=== PATIENT | female | born 1995 | race Two or more races ===

== ENCOUNTER 2017-10-26 23:27 | Emergency (ER) | payer OTHER | END 2017-10-27 01:52 | disposition home or self-care (01) | LOC: M ED 23:27 | DX: H66.91 Otitis media, unspecified, right ear (principal); R51 Headache; R06.02 Shortness of breath; M79.1 Myalgia | CPT/HCPCS: 87880 ==

== ENCOUNTER 2017-11-22 19:57 | Emergency (ER) | payer OTHER | END 2017-11-22 21:55 | disposition home or self-care (01) | LOC: M ED 19:57 | DX: J02.9 Acute pharyngitis, unspecified (principal); R60.0 Localized edema | CPT/HCPCS: 87880 ==

== ENCOUNTER 2018-01-28 14:26 | Outpatient (RCR) | payer OTHER | END 2018-02-10 | LOC: M PT 14:26 | DX: Z51.89 Encounter for other specified aftercare (principal); M26.609 Unspecified temporomandibular joint disorder, unspecified side ==

== ENCOUNTER 2018-02-15 14:40 | Outpatient (RCR) | payer OTHER | END 2018-03-12 | LOC: M PT 14:40 | DX: Z51.89 Encounter for other specified aftercare (principal); M26.609 Unspecified temporomandibular joint disorder, unspecified side ==

== ENCOUNTER → 2018-05-27 | Outpatient (REF) | payer OTHER | LOC: M LAB REF 16:39 | DX: R22.1 Localized swelling, mass and lump, neck (principal); M79.9 Soft tissue disorder, unspecified | CPT/HCPCS: 88307 ==

== ENCOUNTER 2018-10-07 08:13 | Emergency (ER) | payer OTHER ==
[~2018-10-07] VITALS: Ht 172.7 cm; Wt 81.4 kg
[~2018-10-07 08:13] MED LIST: AUGM875T28 PO; CLEO300C2 PO
[2018-10-07 09:22] LABS: URINE PREG TEST NEGATIVE (NEGATIVE)
[2018-10-07 09:25] LABS: BASO # 0.1 10^3/uL (0.0-0.2); BASO % 0.4 % (0.0-1.0); EOS # 0.1 10^3/uL (0.0-0.50); EOS % 0.8 % (0.0-3.0); HEMATOCRIT 43.1 % (36.0-47.0); HEMOGLOBIN 13.2 g/dl (12.0-15.5); LYMPH % 15.6 % (24.0-44.0); MEAN CORPUSCULAR HGB CONC 30.6 g/dl (32.0-36.5); MEAN CORPUSCULAR VOLUME 81.6 fl (80.0-96.0); MONO # 0.7 10^3/uL (0.0-0.8); MONO % 5.5 % (0.0-5.0); NEUTROPHILS # 9.7 10^3/uL (1.8-7.7); NEUTROPHILS % 77.2 % (36.0-66.0); PLATELET COUNT, AUTOMATED 456 10^3/uL (150-450); RED BLOOD COUNT 5.28 10^6/uL (4.00-5.40); WHITE BLOOD COUNT 12.5 10^3/uL (4.0-10.0)
[2018-10-07 09:36] LABS: ALT/SGPT 17 U/L (12-78); BILIRUBIN,DIRECT 0.1 MG/DL (0.0-0.2); BILIRUBIN,TOTAL 0.5 MG/DL (0.2-1.0); BLOOD UREA NITROGEN 10 MG/DL (7-18); CALCIUM LEVEL 9.9 MG/DL (8.5-10.1); CARBON DIOXIDE LEVEL 28 MEQ/L (21-32); CHLORIDE LEVEL 104 MEQ/L (98-107); CREATININE FOR GFR 0.96 MG/DL (0.55-1.30); GLOMERULAR FILTRATION RATE > 60.0 (>60); GLUCOSE, FASTING 69 MG/DL (70-100); LIPASE 86 U/L (73-393); POTASSIUM SERUM 3.6 MEQ/L (3.5-5.1); SODIUM LEVEL 141 MEQ/L (136-145); TOTAL PROTEIN 9.3 GM/DL (6.4-8.2)
[2018-10-07] MEDS ORDERED: FLEET ENEMA PR STA (10:10)
--- NOTE | 2018-10-07 10:37 | REP ---
KUB ONE VIEW: HISTORY: Abdominal pain. A small amount of air is present in small and large intestine. There are no air fluid levels or dilated loops of intestine. There is no pneumoperitoneum. IMPRESSION: Nonspecific bowel gas pattern. Electronically Signed by Kendrick Mccoy MD 10/07/2018 10:38 A
[2018-10-07] MEDS ORDERED: COLA100C5 PO (11:15)
[2018-10-07] MEDS ORDERED: MIRA3350 PO (11:15)
[2018-10-07 11:19] VITALS: BP 118/70
== END 2018-10-07 11:22 | disposition home or self-care (01) ==
LOC: M ED 08:13
DX: K59.00 Constipation, unspecified (principal)

== ENCOUNTER 2018-10-08 23:01 | Emergency (ER) | payer OTHER ==
[~2018-10-08] VITALS: Ht 172.7 cm; Wt 81.4 kg
[~2018-10-08 23:01] MED LIST changes: +COLA100C5 PO; +MIRA3350 PO
[2018-10-09] MEDS ORDERED: KETOROLAC TROMETHAMINE 10 MG TAB PO ONE
[2018-10-09] MEDS ORDERED: KETOROLAC 30 MG/ML VIAL (J1885) As Ordered ONE (00:37)
[2018-10-09] MEDS ORDERED: KETOROLAC 30 MG/ML VIAL (J1885) IV ONE (00:45)
[2018-10-09 00:51] LABS: BASO # 0.1 10^3/uL (0.0-0.2); BASO % 0.5 % (0.0-1.0); EOS # 0.3 10^3/uL (0.0-0.50); EOS % 1.9 % (0.0-3.0); HEMATOCRIT 37.2 % (36.0-47.0); HEMOGLOBIN 11.7 g/dl (12.0-15.5); LYMPH # 3.2 10^3/uL (1.5-6.5); LYMPH % 22.7 % (24.0-44.0); MEAN CORPUSCULAR HEMOGLOBIN 25.4 pg (27.0-33.0); MEAN CORPUSCULAR HGB CONC 31.5 g/dl (32.0-36.5); MEAN CORPUSCULAR VOLUME 80.9 fl (80.0-96.0); MONO # 0.8 10^3/uL (0.0-0.8); MONO % 5.7 % (0.0-5.0); NEUTROPHILS # 9.6 10^3/uL (1.8-7.7); NEUTROPHILS % 68.9 % (36.0-66.0); PLATELET COUNT, AUTOMATED 401 10^3/uL (150-450); WHITE BLOOD COUNT 13.9 10^3/uL (4.0-10.0)
[2018-10-09 01:13] LABS: HCG, SERUM QUALITATIVE NEGATIVE (NEGATIVE)
[2018-10-09 01:34] LABS: ALBUMIN 3.3 GM/DL (3.2-5.2); ALT/SGPT 17 U/L (12-78); BILIRUBIN,DIRECT < 0.1 MG/DL (0.0-0.2); BILIRUBIN,TOTAL 0.1 MG/DL (0.2-1.0); BLOOD UREA NITROGEN 10 MG/DL (7-18); CALCIUM LEVEL 8.7 MG/DL (8.5-10.1); CARBON DIOXIDE LEVEL 26 MEQ/L (21-32); CHLORIDE LEVEL 107 MEQ/L (98-107); CREATININE FOR GFR 0.81 MG/DL (0.55-1.30); GLOMERULAR FILTRATION RATE > 60.0 (>60); GLUCOSE, FASTING 92 MG/DL (70-100); LIPASE 84 U/L (73-393); POTASSIUM SERUM 3.6 MEQ/L (3.5-5.1); SODIUM LEVEL 141 MEQ/L (136-145); TOTAL PROTEIN 7.8 GM/DL (6.4-8.2)
--- NOTE | 2018-10-09 01:39 | REPVR ---
EXAM: US Abdomen Limited, Right Upper Quadrant EXAM DATE/TIME: 10/09/18 (12:32am) CLINICAL HISTORY: 23 year old female with right flank pain TECHNIQUE: Real-time ultrasound of the abdomen with image documentation. Examination was focused on the right upper quadrant. COMPARISON: Abdomen plain films of 10/07/18 FINDINGS: The liver is visually normal in size and texture. The gallbladder is contracted, with no obvious stones. The gallbladder wall is thin (1.8 mm thickness). No pericholecystic fluid is appreciated. The sonographic Montero's sign is reported to be (-). The CBD is not dilated (2.3 mm diameter). The pancreas is obscured by bowel gas. The right kidney measures 10.0 cm in length, with no hydronephrosis appreciated. No ascites is seen. IMPRESSION: No definite pathology. The gallbladder is contracted, with no obvious stones. The sonographic Montero's sign is reported to be (-). No biliary obstruction. The right kidney shows no hydronephrosis. Electronically signed by: Joanna Onofre On 10/09/2018 01:38:27 AM
[2018-10-09] MEDS ORDERED: ISOVUE-370 76% 100ML VIAL (Q9967) As Ordered ONE (02:17)
[2018-10-09] MEDS ORDERED: MORPHINE 2 MG/ML 1ML SYRINGE (J2270) IV ONE (02:30)
--- NOTE | 2018-10-09 02:50 | REPVR ---
EXAM: CT Abdomen and Pelvis With Contrast EXAM DATE/TIME: 10/09/18 (2:25am) CLINICAL HISTORY: 23 year old female with RUQ pain TECHNIQUE: Axial computed tomography images of the abdomen and pelvis with intravenous contrast. All CT scans at this facility use at least one of these dose optimization techniques: automated exposure control; mA and/or kV adjustment per patient size (includes targeted exams where dose is matched to clinical indication); or iterative reconstruction. Coronal and sagittal reformatted images were created and reviewed. CONTRAST: 100 ml of Isovue 370 administered intravenously COMPARISON: US ABDOMEN (limited) of 10/09/18 FINDINGS: Lower thorax: No acute findings. No pleural effusions. ABDOMEN: Liver: No solid mass. Diffuse fatty infiltration. Gallbladder and bile ducts: Normal. No calcified stones. No ductal dilatation. Pancreas: Normal. No ductal dilatation. Spleen: No splenomegaly. Cleft in the spleen (anatomic variation). Adrenals: Normal. No mass. Kidneys and ureters: Normal. No hydronephrosis. Stomach and bowel: Normal. No bowel obstruction. No mucosal thickening. Appendix: No evidence of appendicitis. PELVIS: Bladder: Unremarkable as visualized. Reproductive: Unremarkable as visualized. ABDOMEN and PELVIS: Intraperitoneal space: Normal. No free air. No significant fluid collection. Bones/joints: No acute fracture nor dislocation. Soft tissues: Unremarkable. Vasculature: Normal. No abdominal aortic aneurysm. Lymph nodes: Normal. No enlarged lymph nodes. IMPRESSION: No acute pathology. Electronically signed by: Joanna Onofre On 10/09/2018 02:50:12 AM
[2018-10-09] MEDS ORDERED: DICY20TA11 PO (03:28)
[2018-10-09 03:37] VITALS: BP 109/55
== END 2018-10-09 03:40 | disposition home or self-care (01) ==
LOC: M ED 23:01
DX: K59.00 Constipation, unspecified (principal)
CPT/HCPCS: 36415; 74177; 76705; 80048; 80076; 81001; 83690; 84703; 85025; 93041; 96374; 96375; 99284; J1885; J2270; Q9967

== ENCOUNTER 2018-12-12 07:53 | Emergency (ER) | payer OTHER ==
[~2018-12-12] VITALS: Ht 172.7 cm; Wt 77.3 kg
[~2018-12-12 07:53] MED LIST changes: +DICY20TA11 PO
[2018-12-12 08:40] LABS: BASO # 0.1 10^3/uL (0.0-0.2); BASO % 0.4 % (0.0-1.0); EOS # 0.1 10^3/uL (0.0-0.50); EOS % 0.9 % (0.0-3.0); HEMATOCRIT 34.8 % (36.0-47.0); HEMOGLOBIN 10.8 g/dl (12.0-15.5); LYMPH # 2.3 10^3/uL (1.5-6.5); LYMPH % 16.9 % (24.0-44.0); MEAN CORPUSCULAR HEMOGLOBIN 24.8 pg (27.0-33.0); MONO # 0.4 10^3/uL (0.0-0.8); NEUTROPHILS # 10.5 10^3/uL (1.8-7.7); NEUTROPHILS % 78.4 % (36.0-66.0); PLATELET COUNT, AUTOMATED 384 10^3/uL (150-450); RED BLOOD COUNT 4.35 10^6/uL (4.00-5.40); WHITE BLOOD COUNT 13.3 10^3/uL (4.0-10.0)
[2018-12-12 09:43] LABS: HCG, SERUM QUALITATIVE NEGATIVE (NEGATIVE)
--- NOTE | 2018-12-12 10:15 | REP ---
PELVIC ULTRASOUND: Real-time sonographic evaluation of the pelvis performed utilizing transabdominal and endovaginal technique. The bladder measures 3.4 x 1.2 x 2.1 cm. Uterus measures 11.0 x 5.1 x 6.0 cm. Endometrial thickness is 11 mm. Right ovary measures 2.3 x 2.1 x 2.0 cm and left ovary 4.7 x 3.9 x 3.9 cm. A complex cystic structure in the left ovary measures 3.6 x 3.2 x 3.4 cm. There is no torsion of either ovary, resistive index right ovary is 0.56 and left ovary 0.58 with duplex Doppler evaluation. No significant free fluid is seen. IMPRESSION: Complex cyst left ovary, maximum diameter 3.6 cm. Endometrial thickness 11 mm. No torsion or free fluid. Electronically Signed by Bryan Rogers MD 12/12/2018 12:45 P
[2018-12-12 10:33] VITALS: BP 120/76
[2018-12-12 10:46] LABS: FREE T4 0.98 NG/DL (0.76-1.46)
== END 2018-12-12 10:35 | disposition home or self-care (01) ==
LOC: M ED 07:53
DX: N93.8 Other specified abnormal uterine and vaginal bleeding (principal); N83.202 Unspecified ovarian cyst, left side

== ENCOUNTER 2020-09-04 19:03 | Emergency (ER) | payer OTHER ==
[~2020-09-04] VITALS: Ht 175.3 cm; Wt 77.7 kg
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
[2020-09-04 20:21] VITALS: BP 139/97
== END 2020-09-04 20:33 | disposition home or self-care (01) ==
LOC: M ED 19:03
DX: Z04.1 Encounter for examination and observation following transport accident (principal); S16.1XXA Strain of muscle, fascia and tendon at neck level, initial encounter; V43.52XA Car driver injured in collision with other type car in traffic accident, initial encounter; Y92.410 Unspecified street and highway as the place of occurrence of the external cause; Y93.89 Activity, other specified; Y99.8 Other external cause status; J45.909 Unspecified asthma, uncomplicated

== ENCOUNTER → 2020-10-10 | Outpatient (CLI) | payer OTHER ==
--- NOTE | 2020-10-11 16:26 | SLEEPCENT ---
DATE: 10/10/2020 ORDERED BY: Patricia Sheikh Nocturnal polysomnography was performed for evaluation of sleep physiology in this patient with a history of excessive somnolence, nonrestorative sleep, and irregular breathing patterns in sleep who has comorbidites of asthma. There was 7 hours of data reviewed. There was 304 minutes of sleep identified. Sleep latency was prolonged at 105 minutes. REM latency was normal at 62 minutes. Sleep architecture was fair with three REM cycles appreciated. There was some mild fragmentation. Overall sleep efficiency was 73.3%. The electrocardiogram showed a sinus rhythm with an average heart rate of 68 beats per minute. EEG showed normal waveforms for wake and sleep. There were 33 respirations events identified of 10 seconds in duration or greater for an apnea-hypopnea index of 6.5. The events were obstructive, primarily hypopneas, not exclusive to sleep stage but nearly exclusive to the supine posture. Arousals from respiratory events occurred 1.2 times per hour, and there were no oxygen desaturations below 90%. There was some minimal limb activity, but limb movement arousals were few. Mild snoring was also noted. IMPRESSION: Mild positional obstructive sleep apnea syndrome (G47.33). Apnea-hypopnea index 6.5. RECOMMENDATION: Sleep position retraining for avoidance of the supine posture may be sufficient. If the patient's symptoms persist, referral back to the sleep disorder center for pressure therapy cold be considered. In the interim, alcohol and sedative avoidance should be practiced and caution exercised during the operation of motor vehicles.
== END ==
LOC: M SLEEP 20:00
PROVIDERS: ATTEND Nurse Practitioner Family
DX: G47.33 Obstructive sleep apnea (adult) (pediatric) (principal)

== ENCOUNTER → 2020-11-13 | Outpatient (CLI) | payer OTHER ==
--- NOTE | 2020-11-15 09:01 | SLEEPCENT ---
NOCTURNAL POLYSOMNOGRAPHY DATE: 11/13/2020 ORDERED BY: JENARO Blanco Nocturnal polysomnography was performed for the titration of pressure therapy in this patient with obstructive sleep apnea syndrome with apnea-hypopnea index of 6.5. For testing, the patient was fit with a ResMed AirFit F20 full face mask of medium size was used, 4 cm of water pressure were applied to the circuit, and the lights were extinguished. 8 hours and 3 minutes of data were reviewed. There were 369 minutes of sleep identified. Sleep latency was prolonged at 75 minutes. REM latency was normal at 73.5 minutes. Sleep architecture improved with optimal titration of pressure therapy, and there were three REM cycles appreciated. Overall sleep efficiency was 77.3%. The electrocardiogram showed a sinus rhythm with an average heart rate of 52 beats per minute. EEG showed normal waveforms for wake and sleep. Respiratory events were fully palliated with CPAP at a pressure of +7. Remaining measures of sleep physiology were normal. IMPRESSION: Obstructive sleep apnea syndrome (G47.33). RECOMMENDATION: Nightly use of pressure therapy 7 cm of water.
== END ==
LOC: M SLEEP 20:00
PROVIDERS: ATTEND Nurse Practitioner Family
DX: G47.33 Obstructive sleep apnea (adult) (pediatric) (principal)